=== PATIENT | male | born 1955 | race Caucasian/White ===

== ENCOUNTER 2018-02-26 07:57 | Emergency (ER) | END 2018-02-26 11:09 | disposition home or self-care (01) ==

== ENCOUNTER 2018-02-27 06:54 | Emergency (ER) | END 2018-02-27 08:33 | disposition home or self-care (01) ==

== ENCOUNTER 2018-03-30 07:25 | Emergency (ER) | END 2018-03-30 11:15 | disposition home or self-care (01) ==